=== PATIENT | male | born 1980 | race Caucasian/White ===

== ENCOUNTER 2023-05-21 14:55 | Emergency (ER) | payer MEDICAID, SELFPAY ==
[2023-05-21 14:55] VITALS: BP 153/106; PULSE 120; RESP 18; TEMP 35.8; O2SAT 98; BMI 24.5
--- NOTE | 2023-05-21 15:07 | EDS_ITS ---
HPI History of Present Illness Chief Complaint: General Illness Informant: patient Narrative Narrative: Sent from urgent care concerning right forearm infection. History of IV drug use for years. He injected yesterday into his wrist. Woke up this morning increasing redness went to urgent care. No fevers. No history of diabetes. History significant for traumatic right foot infection a year ago is currently still healing with scabbing. Denied injecting that area. PFSH PFSH Home Medications buprenorphine 8 mg-naloxone 2 mg sublingual film 2 ea sublingual DAILY 05/21/23 [History Last Taken Unknown] cephalexin 500 mg capsule 500 mg PO Q6 #40 CAPSULES 05/21/23 [Rx Last Taken Unknown] sulfamethoxazole 800 mg-trimethoprim 160 mg tablet 1 tab PO BID #20 TABLETS 05/02 [Rx Last Taken Unknown] Allergy/AdvReac Type Severity Reaction Status Date / Time No Known Allergies Allergy Verified 05/21/23 14:57 Social History Smoking Status: Current every day smoker tobacco type: cigarettes ROS ROS ED Constitutional Constitutional ED: Denies chills, fever(s) or sweats Eyes Eyes: Denies change in vision ENT ENT ED: Denies dysphagia or sore throat Cardiovascular Cardiovascular: Denies chest pain, leg edema, palpitations or racing heartbeat Respiratory/Chest Respiratory/Chest: Denies cough, dyspnea or dyspnea on exertion Gastrointestinal Gastrointestinal: Denies abdominal pain, diarrhea, nausea or vomiting Genitourinary Genitourinary ED: Denies dysuria, hematuria or urinary frequency Musculoskeletal Musculoskeletal: Denies back pain, extremity pain or neck pain Integumentary Reports other Details: Infection ; Denies rash or wounds Neurologic Neurologic: Denies headache(s), paresthesias or weakness EXAM Physical Exam Const Vital Signs: 05/21/23 14:55 05/21/23 14:55 05/21/23 15:15 Temperature 96.5 F L Temperature Source Temporal Pulse Rate 120 H 120 H 113 H Respiratory Rate 18 18 Blood Pressure 153/106 H 153/106 H 148/94 H Blood Pressure Mean 121 121 112 Pulse Ox 98 100 Oxygen Delivery Method Room Air Room Air 05/21/23 17:24 05/21/23 19:00 05/21/23 19:00 Temperature 98 F 98.0 F 98.0 F Temperature Source Temporal Temporal Pulse Rate 98 98 98 Respiratory Rate 18 18 18 Blood Pressure 136/86 H 136/86 H 136/86 H Blood Pressure Mean 102 102 102 Pulse Ox 98 98 98 Oxygen Delivery Method Room Air Room Air Positive well nourished and well developed Constitutional Narrative: Nontoxic General Appearance ED: well developed and NAD HEENT Reports moist mucous membranes normocephalic and atraumatic Eyes PERRL, EOMs intact bilaterally and conjunctivae normal General Eye ED: Yes normal appearance of both eyes Neck no lymphadenopathy and supple General: Negative for tenderness Chest Wall Chest: Negative for tenderness Resp normal respiratory effort and normal air movement Effort and Inspection: symmetric chest movement; Negative for respiratory distress Cardio regular rhythm and no murmurs Rate: tachycardic Peripheral Pulses: pulses 2+ throughout GI normal to inspection, nondistended, normoactive bowel sounds and non-tender Palpation: Negative for guarding or rebound tenderness present Back/Spine no CVA tenderness and no thoracic nor lumbar tenderness Extremity Extremity Narrative: See skin General Extremety ED: Negative for edema or tenderness General Extremity: Negative for edema Neuro oriented x3 and no sensory deficits noted Sensorium / Orientation: awake and alert Skin Skin Narrative: Right upper extremity: Distal volar aspect of the wrist injection site with swelling approximately 3 cm, there is streaking up the forearm to the antecubital, no upper arm erythema no lymphadenopathy or axillary. There is no active drainage. Right foot examination skin noted scabbing on the lateral aspect of the distal fifth metatarsal approximately 2 and half centimeters. There was ecchymosis laterally there is no erythema no drainage no streaking. Sepsis Attestation Sepsis Attestation: Sepsis Ruled Out Date exam was performed: 05/21/23 Time exam was performed: 16:46 Possible Source of Sepsis: Skin/soft tissue MDM MDM MDM Narrative Medical decision making narrative: Interventions / MDM: Differential diagnosis: Cellulitis, IV drug abuse. Diagnosis considered but do not suspect: N/A My EKG interpretation: N/A Imaging independently reviewed and interpreted by myself: 2 view right forearm: Nonspecific radiopaque foreign body noted distal radius. No metal foreign body. External documents reviewed: N/A Test considered but not ordered:N/A ED course: Patient nontoxic tachycardic on arrival. Cellulitis streaking up the forearm, erythema was outlined. Sepsis labs ordered. Zosyn and vancomycin antibiotics. Right forearm x-ray ordered. 1645: Labs white count 14.3 CRP 21. Lactate is 1.3. Blood culture pending. Normal kidney function. Normal bilirubin. Currently Zosyn was given he is on vancomycin, erythema has not surpassed the outline. Clinically stable. Clinically not septic. There was a radiopaque foreign body distal radius, does report glass injury in 2015 was not evaluated healthcare. This is likely from that injury has not had infections per patient. Will reevaluate after vancomycin for final disposition. 1918: Antibiotics are done on reevaluation erythema has lightened more distally. Initial considered admission for continued IV antibiotics however is clinically improving is nontoxic. He understands he needs to quit his IV drug habits. He actually has a follow-up for a new primary physician in 2 days with [facility]. He will keep his follow-up. Prescription antibiotic sent to his pharmacy with strict return precautions. All questions were answered. Re-evaluation: stable Disposition discussed with patient/family/significant other: Patient and significant other. Case discussed with consulting clinician: N/A This note was generated with [employer] dictation software. It may contain incorrect words, spelling, and punctuation that were not noted in checking the note before signing. Lab Data Attestation: I reviewed the patient's lab results. Labs: Laboratory Results - last 24 hr 05/21/23 15:25 WBC 14.3 H RBC 4.27 L Hgb 13.0 Hct 39.4 L MCV 92.3 MCH 30.4 MCHC 33.0 RDW Std Deviation 41.7 RDW Coeff of Gamal 12.5 Plt Count 245 MPV 9.3 Immature Gran % (Auto) 0.500 Neut % (Auto) 78.0 H Lymph % (Auto) 13.2 L [place] % (Auto) 6.9 Eos % (Auto) 1.1 Baso % (Auto) 0.3 Absolute Neuts (auto) 11.2 H Absolute Lymphs (auto) 1.89 Nucleated RBC % 0 ESR 4 PT 12.3 INR 0.9 APTT 26.8 Sodium 139 Potassium 3.4 L Chloride 107 Carbon Dioxide 28.0 Anion Gap 4 L BUN 19 H Creatinine 0.86 Estim Creat Clear Calc 125.17 Est GFR (MDRD) Af Amer 124 Est GFR (MDRD) Non-Af 103 BUN/Creatinine Ratio 22.0 H Glucose 98 Lactic Acid 1.3 Calcium 8.5 Total Bilirubin 0.30 AST 41 H ALT 76 H Alkaline Phosphatase 153 H C-React Prot Ext Range 21.90 H Total Protein 7.5 Albumin 4.2 Globulin 3.3 Albumin/Globulin Ratio 1.3 Radiography Diagnostic Testing: Clinical Impression(s) from Imaging Studies Forearm X-Ray 05/21/23 15:42 IMPRESSION: Apparent nonspecific radiopaque density in the soft tissues overlying the distal radial shaft. No evidence for acute osteomyelitis Electronically Signed: Luis Enrique Keenan MD at 16:35 EDT Reading Location ID and State: [facility] / [place] Tel , Service support , Discharge Plan Triage Chief Complaint: General Illness ED Provider: Austin Bennett Dx/Rx/DC Orders Clinical Impression: Cellulitis of arm, right, IVDU (intravenous drug user) Instructions: Cellulitis Dc Prescriptions: New sulfamethoxazole-trimethoprim [sulfamethoxazole-trimethoprim] 800-160 mg tablet 1 tab PO BID Qty: 20 0RF cephalexin [cephalexin] 500 mg capsule 500 mg PO Q6 Qty: 40 0RF No Action buprenorphine-naloxone 8-2 mg film 2 ea sublingual DAILY Primary Care Provider: Care Physician,No Primary Referrals: Hussain Brown MD [Non-Staff] - Keep [facility] appointment Activity Restrictions/Additional Instructions: X-ray notes a remote foreign body likely from your injury in 2014 from glass. Take and finish antibiotic as prescribed. Keep your follow-up in 2 days. If symptoms worsen developing fevers, return immediately to the ED for reevaluation. Disposition Disposition: Home, Self Care Discharge Date/Time: 05/21/23 19:36
[2023-05-21 15:15] VITALS: BP 148/94; PULSE 113; RESP 18; O2SAT 100
[2023-05-21] MEDS: 0.9% Normal Saline (1000mL) 1,000 ML 1000 ML IV (15:31)
[2023-05-21 15:42] LABS: Absolute Lymphocyte Count 1.89 X10^3/uL (0.83-4.51); Absolute Neutrophil Count 11.2 X10^3/uL (2.0-7.7); Basophil# 0.04 X10^3/uL; Basophil% 0.3 % (0-1); Eosinophil# 0.16 X10^3/uL; Eosinophils% 1.1 % (0-5); Hematocrit 39.4 % (40-54); Lymphocyte # 1.89 X10^3/ul (0.83-4.51); Lymphocyte % 13.2 % (19-41); Mean Corpuscular Hgb 30.4 pg (27.0-32.0); Mean Corpuscular Volume 92.3 fL (80-94); Mean Platelet Vol. 9.3 fl (6.2-12.0); Monocyte# 0.98 X10^3/uL; Monocyte% 6.9 % (0-10); NRBC Flagged by Analyzer 0 % (0-5); Neutrophil # 11.16 X10^3/uL (2.7-7.7); Platelet Count 245 K/mm3 (150-450); RBC Distribution Width CV 12.5 % (11.6-14.6); RBC Distribution Width SD 41.7 fl (35.1-43.9); Red Blood Count 4.27 M/mm3 (4.6-6.2); White Blood Count 14.3 K/mm3 (4.4-11.0)
--- NOTE | 2023-05-21 15:42 | RAD_ITS ---
STUDY: X-RAY - RIGHT RADIUS AND ULNA REASON FOR EXAM: Male, 43 years old. infection TECHNIQUE: 2 view(s) of the forearm. COMPARISON: None. FINDINGS: There is a nonspecific radiopaque density in the soft tissues overlying the volar surface of the distal radial shaft of uncertain etiology or clinical significance.. Normal visualized radius. Normal visualized ulna. RAD/Forearm 2 Views IMPRESSION: Apparent nonspecific radiopaque density in the soft tissues overlying the distal radial shaft. No evidence for acute osteomyelitis Electronically Signed: Luis Enrique Keenan MD at 16:35 EDT ,
[2023-05-21 15:49] LABS: Erythrocyte Sedimentation Rate 4 mm/hr (0-20); International Normalized Ratio 0.9; Prothrombin Time (Protime)PT. 12.3 SECONDS (11.7-14.9)
[2023-05-21 15:50] LABS: Partial Thromboplast Time 26.8 Seconds (24.1-36.2)
[2023-05-21] MEDS: Piperacil/Tazobactam 4.5 GM in 0.9% Normal Saline (100mL MB+) 100 ML IV (15:58)
[2023-05-21 15:59] LABS: ALB/GLOB Ratio 1.3 RATIO (0.9-2.4); AST(SGOT) 41 U/L (15-37); Alanine Aminotransfer ALT/SGPT 76 U/L (16-61); Albumin, Serum 4.2 g/dL (3.2-5.0); Alkaline Phosphatase 153 U/L (45-117); Anion Gap 4 (5-15); BUN 19 mg/dL (7-18); Calcium,Total 8.5 mg/dL (8.5-10.1); Chloride 107 mmol/L (98-107); Creatinine, Serum 0.86 mg/dL (0.70-1.30); EST Glomerular Filtration Rate 103 mL/min (>60); Est Glom Filt Rate - Afr Amer 124 mL/min (>60); Estimated Creatinine Clearance 125.17 ml/min; Globulin 3.3 g/dL (2.2-4.2); Glucose 98 mg/dL (74-106); Potassium 3.4 mmol/L (3.5-5.1); Protein, Total 7.5 g/dL (6.4-8.2); Sodium Level 139 mmol/L (136-145)
[2023-05-21 16:02] LABS: Lactic Acid 1.3 mmol/L (0.4-1.9)
[2023-05-21] MEDS: Vancomycin HCl 2,000 MG in 0.9% Normal Saline (500mL Bag) 500 ML 250 MG IV (16:24)
[2023-05-21 17:24] VITALS: BP 136/86; PULSE 98; RESP 18; TEMP 36.6; O2SAT 98
[2023-05-21 19:00] VITALS: BP 136/86; PULSE 98; RESP 18; TEMP 36.7; O2SAT 98
== END 2023-05-21 19:36 | disposition home or self-care (01) ==
PROVIDERS: Emergency Provider Emergency Medicine; Visit Provider Emergency Medicine
DX: L03.113 Cellulitis of right upper limb (principal); F17.210 Nicotine dependence, cigarettes, uncomplicated
CPT/HCPCS: 73090; 80053; 83605; 85025; 85610; 85652; 85730; 86140; 87040; 96365; 96366; 96367; 99284; J7030; J7040; A4216